=== PATIENT | male | born 1965 | race Caucasian/White ===

== ENCOUNTER 2020-05-02 14:55 | Inpatient (IN) | payer OTHER ==
[~2020-05-02] VITALS: Ht 188 cm; Wt 113.4 kg
[2020-05-02 14:57] VITALS: BP 151/94
--- NOTE | 2020-05-02 14:58 | NUR ---
Thuy fischer in ED - 05/02/20 at 1509 by MEDDANIELLE PT ENIO ALS TO ER BED 08. RN EVALUATING AT BEDSIDE.
--- NOTE | 2020-05-02 15:24 | NUR ---
Patient ambulated to bed 3 for further care. RN evaluating patient at bedside.
--- NOTE | 2020-05-02 15:46 | NUR ---
54 YO MALE C/O INFECTED WOUND RIGHT BIG TOE X 1 WEEK. MED HX: DM
[2020-05-02] MEDS ORDERED: VANCOMYCIN 1,000 MG in DEXTROSE 5% 250 ML IV ONE ×2 (15:55→21:00)
[2020-05-02] MEDS ORDERED: NACL 0.9% 1,000 ML IV ONE ×2 (15:55→16:55)
[2020-05-02] MEDS ORDERED: VANCOMYCIN 1,000 MG VIAL ONE ×2 (16:18→23:45)
[2020-05-02 16:24] LABS: BASOPHILS # (AUTO) 0.1 K/uL (0.00-0.22); BASOPHILS % (AUTO) 0.7 % (0.0-2.0); EOSINOPHILS # (AUTO) 0.1 K/uL (0-0.4); EOSINOPHILS % (AUTO) 0.8 % (0.0-4.0); HEMATOCRIT 44.4 % (36-52); HEMOGLOBIN 15.1 g/dL (12.0-18.0); LYMPHOCYTES # (AUTO) 1.9 K/uL (2.0-11.5); LYMPHOCYTES % (AUTO) 19.8 % (20.5-51.1); MEAN CORPUSCULAR HEMOGLOBIN 32 pg (27-31); MEAN CORPUSCULAR HGB CONC 34 g/dL (33-37); MEAN CORPUSCULAR VOLUME 93.3 fL (80-94); MONOCYTES # (AUTO) 0.6 K/uL (0.8-1.0); MONOCYTES % (AUTO) 6.3 % (1.7-9.3); NEUTROPHILS # (AUTO) 7.1 K/uL (1.8-7.7); NEUTROPHILS % (AUTO) 72.4 % (42.2-75.2); PLATELET COUNT (AUTO) 330 K/uL (140-450); RED BLOOD CELL COUNT(AUTO) 4.76 MIL/uL (4.20-6.10); RED CELL DISTRIBUTION WIDTH 12.5 % (11.6-13.7); WHITE BLOOD COUNT (AUTO) 9.8 K/uL (4.8-10.8)
[2020-05-02 16:41] LABS: ALBUMIN 2.6 g/dL (3.4-5.0); ANION GAP 16.7 (8-16); CARBON DIOXIDE 22.1 mmol/L (21-32); CREATININE 0.9 mg/dL (0.6-1.3); POTASSIUM 3.8 mmol/L (3.5-5.1); TOTAL BILIRUBIN 0.2 mg/dL (0.0-1.0)
[2020-05-02 16:52] LABS: PROTHROMBIN TIME 9.9 secs (10.8-13.4)
[2020-05-02] MEDS ORDERED: INSULIN REGULAR, HUMAN 100 UNIT/ML VIAL SUBQ ONE (16:55)
[2020-05-02 17:10] LABS: APPEARANCE,URINE SL CLOUDY (CLEAR); BILIRUBIN,URINE NEGATIVE (NEGATIVE); BLOOD, URINE TRACE-I (NEGATIVE); COLOR,URINE YELLOW (YELLOW); LEUKOCYTE ESTERASE ,URINE TRACE (NEGATIVE); NITRITE, URINE NEGATIVE (NEGATIVE); PH,URINE 6.5 (5.0-9.0); UGLUCOSE 3+ (NEGATIVE)
[2020-05-02 17:53] LABS: RBC,URINE 0-5 /HPF (0-5); YEAST,URINE Moderate /HPF (None Seen)
[2020-05-02] MEDS ORDERED: ONDANSETRON 4 MG/2 ML VIAL IVP PRN (18:05)
[2020-05-02] MEDS ORDERED: MORPHINE SULFATE 4 MG/ML SYR IVP PRN (18:05)
[2020-05-02] MEDS ORDERED: DEXTROSE 50% 50 ML SYR IVP PRN (18:05)
[2020-05-02] MEDS ORDERED: LORazepam 2 MG/ML VIAL IVP PRN (18:05)
[2020-05-02] MEDS ORDERED: INSULIN LANTUS 100 UNITS/ML 10 ML VIAL SUBQ ONE (18:05)
[2020-05-02] MEDS ORDERED: VANCOMYCIN PER PHARMACY MC PRN (18:05)
[2020-05-02] MEDS ORDERED: HYDROcodone/APAP 5/325 MG 1 TAB TAB PO PRN (18:05)
--- NOTE | 2020-05-02 18:31 | NUR ---
PT RESTING IN BED. EASILY AROUSEABLE TO VOICE. VSS. WILL CONTINUE TO MONITOR.
--- NOTE | 2020-05-02 19:23 | NUR ---
RECEIVED REPORT FROM RON WEBER
--- NOTE | 2020-05-02 20:30 | NUR ---
Patient will be admitted to care of DR OTT. Admited to MED/SURG. Will go to room 126A. Belongings list completed. Report to TIA GARCIA.
--- NOTE | 2020-05-02 20:35 | NUR ---
RECEIVED PT FROM ER / [facility] , AMBULATES TO BED W/ ASSIST , W/ FOUL SMELLING WOUND ON R BIG TOE . IV SITE INTACT AND PATENT . ADMISSION ASSSEMENT DONE . MRSA - SENT TO LAB . SAFETY MEASURES IN PLACE . PLAN OF CARE DISCUSSED AND VERBALIZE UNDERSTANDING . WILL CONT. TO MONITOR.
[2020-05-02 20:53] VITALS: BP 142/62
[2020-05-02] MEDS ORDERED: PIPERACILLIN/TAZOBACTAM 3.375 GM VIAL IV ONE (21:32)
[2020-05-02] MEDS: PIPERACILLIN/TAZOBACTAM 3.375 GM in DEXTROSE 5% 50 ML IV SCH (21:43)
[2020-05-02] MEDS: BLOOD GLUCOSE MONITORING 1 DEV DEV FS SCH (22:10)
[2020-05-02] MEDS: INSULIN LISPRO SLIDING SCALE 100 UNITS/ML VIAL SUBQ PRN (22:32)
--- NOTE | 2020-05-02 23:23 | NUR ---
CALL PHARMACY - VERIFYING THE FREQ. OF VANCOMYCIN - AT THE ER ER NURSE GAVE VANCOCIN 1,000 MG TIV AT 1633 THEN WHEN I RECIEVED THE PT HERE IN THE FLOOR AT 2034 ANOTHER DUE 1000 MG VANCO TIV - TOO CLOSE THE FREQ - THE PHARMACIST SAID THEY WILL RE ARRANGE THE SCHEDULE .
--- NOTE | 2020-05-02 23:32 | NUR ---
PHARMACIST CALL BACK - SHE SAID GIVE THE VANCOMYCIN 1000 MG TIV NOW .
--- NOTE | 2020-05-03 | NUR ---
PT NPO FOR SURGERY IN AM ON RT FOOT CONSENT ALREADY SINGED
--- NOTE | 2020-05-03 02:00 | NUR ---
MADE ROUNDS ,RESTING ON BED . NO COMPLAIN MADE .
[2020-05-03 04:00] VITALS: BP 136/82
--- NOTE | 2020-05-03 04:00 | NUR ---
MADE ROUNDS , NO S/SX OF ACUTE DISTRESS NOTED WILL CONT. TO MONITOR - CALL LIGHT WITHIN REACH .
[2020-05-03] MEDS ORDERED: PIPERACILLIN/TAZOBACTAM 3.375 GM VIAL IV ONE (04:51)
[2020-05-03] MEDS: PIPERACILLIN/TAZOBACTAM 3.375 GM in DEXTROSE 5% 50 ML IV SCH ×3 (05:10→18:44)
[2020-05-03] MEDS: INSULIN LISPRO SLIDING SCALE 100 UNITS/ML VIAL SUBQ PRN ×4 (05:43→22:50)
[2020-05-03] MEDS: BLOOD GLUCOSE MONITORING 1 DEV DEV FS SCH ×4 (05:46→21:00)
[2020-05-03 05:54] LABS: BASOPHILS % (AUTO) 0.4 % (0.0-2.0); EOSINOPHILS % (AUTO) 0.6 % (0.0-4.0); HEMATOCRIT 44.3 % (36-52); HEMOGLOBIN 15.2 g/dL (12.0-18.0); LYMPHOCYTES # (AUTO) 2.4 K/uL (2.0-11.5); LYMPHOCYTES % (AUTO) 28.5 % (20.5-51.1); MEAN CORPUSCULAR HEMOGLOBIN 32 pg (27-31); MEAN CORPUSCULAR HGB CONC 34 g/dL (33-37); MEAN CORPUSCULAR VOLUME 93.6 fL (80-94); MONOCYTES # (AUTO) 0.6 K/uL (0.8-1.0); MONOCYTES % (AUTO) 6.5 % (1.7-9.3); NEUTROPHILS # (AUTO) 5.4 K/uL (1.8-7.7); PLATELET COUNT (AUTO) 262 K/uL (140-450); RED BLOOD CELL COUNT(AUTO) 4.74 MIL/uL (4.20-6.10); RED CELL DISTRIBUTION WIDTH 12.6 % (11.6-13.7); WHITE BLOOD COUNT (AUTO) 8.4 K/uL (4.8-10.8)
--- NOTE | 2020-05-03 06:00 | NUR ---
DRESS THE WOUND - PROCEDURE TOLERATED WELL . NO COMPLAIN MADE .
--- NOTE | 2020-05-03 07:00 | NUR ---
REPORT RECEIVED FROM SCREW MACHINE HAND NURSE REGARDING PATIENT CONDITION AND PLAN OF CARE. PATIENT CURRENTLY RESTING IN BED, IN NO S/S RESPIRATORY DISTRESS, DOES NOT APPEAR TO BE IN ANY PAIN. ALL NEEDS MET, CALL LIGHT WITHIN REACH, WILL CONTINUE TO MONITOR.
--- NOTE | 2020-05-03 07:00 | NUR ---
ENDORSED TO AM SHIFT - PT - STABLE.
[2020-05-03 07:04] LABS: ALBUMIN 2.5 g/dL (3.4-5.0); ANION GAP 14.4 (8-16); CARBON DIOXIDE 23.3 mmol/L (21-32); CREATININE 0.7 mg/dL (0.6-1.3); POTASSIUM 3.7 mmol/L (3.5-5.1); TOTAL BILIRUBIN 0.3 mg/dL (0.0-1.0)
--- NOTE | 2020-05-03 07:16 | NUR ---
PATIENT HAS BEEN SCREENED AND CATEGORIZED MODERATE NUTRITION RISK. PATIENT WILL BE SEEN WITHIN 3-5 DAYS OF ADMISSION. 05/05/20 05/07/[address]
[2020-05-03] MEDS ORDERED: VANCOMYCIN HCL 1.25 GM in NACL 0.9% 250 ML IV SCH (08:00)
[2020-05-03] MEDS: ENOXAPARIN 40 MG/0.4 ML SYR SUBQ SCH (08:47)
[2020-05-03] MEDS: VANCOMYCIN HCL 1.25 GM in NACL 0.9% 250 ML IV SCH ×2 (08:48→17:41)
[2020-05-03] MEDS: INSULIN LANTUS 100 UNITS/ML 10 ML VIAL SUBQ SCH (08:49)
--- NOTE | 2020-05-03 08:49 | NUR ---
RECEIVED PATIENT SITTING IN BED ALERT, AWAKE, ORIENTED X 4 SPEAKING ON PHONE. PATIENT MEDICATIONS EXPLAINED AND GIVEN, VANCOMYCIN HUNG. PATIENT IS RESTING COMFORTABLY IN BED IN NO S/S RESPIRATORY DISTRESS, NO COMPLAINTS OF PAIN AT THIS TIME. DRESSING FOR RIGHT FOOT IS INTACT AND NO DRAINAGE IS NOTED. EMPTIED PATIENT URINAL OF 800 ML OF YELLOW URINE, NON ODOROUS. PATIENT ATE 100% OF BREAKFAST. ALL NEEDS MET, CALL LIGHT WITHIN REACH, WILL CONTINUE TO MONITOR.
--- NOTE | 2020-05-03 10:00 | NUR ---
PT SITTING IN BED , ALERT, IN NO S/S RESPIRATORY DISTRESS, NO COMPLAINTS OF PAIN. NO DRAINAGE NOTED ON RIGHT FOOT WOUND DRESSING. ALL NEEDS MET, CALL LIGHT WITHIN REACH, WILL CONTINUE TO MONITOR.
--- NOTE | 2020-05-03 12:00 | NUR ---
SCOURING MACHINE OPERATOR NOTE: Patient's Orientation Person Situation Place Time Information Provided By PATIENT Comments SW MET PATIENT AT BEDSIDE TO VERIFY DEMOGRAPHICS. Reed Maker, Realtionship and Phone Number PAULINE BARRETT [phone] Healthcare Power of Supervisor Stage [employer] No Does Patient Have a POLST No Identifying Problems No Social Work Triggers Is A Social Work Consult Needed No Mandate Report Filed No Explanation Of Identifying Problems PATIENT IS A 54-YEAR-OLD MALE ADMITTED FOR CELLULITIS. PATIENT HAS PMHX OF DIABETES. Admitted From Home Pre-Admission Level Of Functioning Status Independent/Ambulatory Prior Resources/Services Used In Last 12 Months No Prior Resources Used Prior DME No Prior DME Used Living Situation Lives Alone Mobile Home Patient Had Caregiver No Home Support No Caregiver Issues Financial Issues No Known Financial Issue Referral To The Financial Counselor Needed No Factors/Needs No D/C Needs Identified Pt/Rep Participated In Discharge Plan Yes Patient/Family Agress With Discharge Plan Yes Discharge Plan Comments TENTATIVE DISCHARGE PLAN IS FOR PATIENT TO RETURN HOME. DC Plan Status Initiated
--- NOTE | 2020-05-03 12:25 | NUR ---
BLOOD GLUCOSE CHECKED TO BE 295, WILL GIVE 6 UNITS OF HUMALOG INSULIN.
--- NOTE | 2020-05-03 12:40 | NUR ---
PT SITTING IN BED , ALERT, IN NO S/S RESPIRATORY DISTRESS, NO COMPLAINTS OF PAIN. NO DRAINAGE NOTED ON RIGHT FOOT WOUND DRESSING. JESSE REYNOLDS, NO ADVERSE REACTIONS NOTED. ALL NEEDS MET, CALL LIGHT WITHIN REACH, WILL CONTINUE TO MONITOR.
[2020-05-03 14:00] VITALS: BP 125/76
--- NOTE | 2020-05-03 14:00 | NUR ---
PT SITTING IN BED, ALERT, IN NO S/S RESPIRATORY DISTRESS, NO COMPLAINTS OF PAIN. NO DRAINAGE NOTED ON RIGHT FOOT WOUND DRESSING. ALL NEEDS MET, CALL LIGHT WITHIN REACH, WILL CONTINUE TO MONITOR.
--- NOTE | 2020-05-03 17:35 | NUR ---
DR WILD TOPOGRAPHICAL DRAFTER IN TO EXAMINE RESIDENT FOOT AND SPEAK WITH PATIENT REGARDING PLAN OF CARE.
--- NOTE | 2020-05-03 17:42 | NUR ---
BLOOD GLUCOSE CHECKED TO BE 246 WILL GIVE 4 UNITS OF HUMALOG INSULIN.
--- NOTE | 2020-05-03 19:20 | NUR ---
REPORT GIVEN TO TEST ENGINEERING MANAGER NURSE BY THE BEDSIDE REGARDING PATIENT CONDITION AND PLAN OF CARE OF SURGERY TOMORROW. PATIENT IS RESTING IN BED, STABILIZED, IN NO S/S RESPIRATORY DISTRESS, NO C/O OF PAIN.
--- NOTE | 2020-05-03 19:30 | NUR ---
RECEIVED PT FROM DAY SHIFT NURSE PT IS AAOX4 AMBULATORY ,RT FOOT DIABETIC ULCER DRESSING DRY AND INTACT, IV ON LEFT HAND INFUSING WELL NOT DISTRESS NOTED AT HIS TIME
[2020-05-03 20:00] VITALS: BP 143/80
--- NOTE | 2020-05-03 21:30 | NUR ---
BLOOD SUGAR TEST 316 COVERAGE WITH 8 UNITS SUBQ HUMALOG FOLLOW PROTOCOL
[2020-05-04] VITALS: BP 143/80
[2020-05-04] MEDS: PIPERACILLIN/TAZOBACTAM 3.375 GM in DEXTROSE 5% 50 ML IV SCH ×2 (00:43→06:47)
[2020-05-04] MEDS: VANCOMYCIN HCL 1.25 GM in NACL 0.9% 250 ML IV SCH (00:46)
--- NOTE | 2020-05-04 04:00 | NUR ---
PT HAS BEEN MONITORING CLOSED SLEEPING WELL NOT DISTRESS NOTED
[2020-05-04 06:36] LABS: ALBUMIN 2.4 g/dL (3.4-5.0); ANION GAP 12.3 (8-16); CARBON DIOXIDE 25.4 mmol/L (21-32); CREATININE 0.9 mg/dL (0.6-1.3); POTASSIUM 3.7 mmol/L (3.5-5.1); TOTAL BILIRUBIN 0.4 mg/dL (0.0-1.0)
[2020-05-04] MEDS ORDERED: ONDANSETRON 4 MG/2 ML VIAL IVP PRN (07:00)
[2020-05-04] MEDS: BLOOD GLUCOSE MONITORING 1 DEV DEV FS SCH ×2 (07:00→12:20)
[2020-05-04] MEDS: BLOOD GLUCOSE MONITORING 1 DEV DEV FS ONE ×2 (07:00→08:49)
[2020-05-04] MEDS ORDERED: NACL 0.9% 1,000 ML IV SCH (07:00)
--- NOTE | 2020-05-04 07:00 | NUR ---
BLOOD SUGAR TEST 259 PT NPO GOING TO SURGERY , KPT WILL BE ENDORSED TO DAY SHIFT NURSE FOR CONTINUE OF CARE
[2020-05-04 07:11] LABS: BASOPHILS % (AUTO) 0.5 % (0.0-2.0); EOSINOPHILS # (AUTO) 0.1 K/uL (0-0.4); EOSINOPHILS % (AUTO) 0.8 % (0.0-4.0); HEMATOCRIT 47.1 % (36-52); LYMPHOCYTES # (AUTO) 2.2 K/uL (2.0-11.5); LYMPHOCYTES % (AUTO) 27.2 % (20.5-51.1); MEAN CORPUSCULAR HEMOGLOBIN 32 pg (27-31); MEAN CORPUSCULAR HGB CONC 34 g/dL (33-37); MEAN CORPUSCULAR VOLUME 93.9 fL (80-94); MONOCYTES # (AUTO) 0.7 K/uL (0.8-1.0); MONOCYTES % (AUTO) 8.2 % (1.7-9.3); NEUTROPHILS % (AUTO) 63.3 % (42.2-75.2); PLATELET COUNT (AUTO) 289 K/uL (140-450); RED BLOOD CELL COUNT(AUTO) 5.01 MIL/uL (4.20-6.10); RED CELL DISTRIBUTION WIDTH 12.5 % (11.6-13.7); WHITE BLOOD COUNT (AUTO) 7.9 K/uL (4.8-10.8)
--- NOTE | 2020-05-04 07:30 | NUR ---
RECEIVED PT AAOX4. PT IS GOING TO SURGERY BY DR. HORTON. CONSENT SIGNED. SURGICAL CHECKLIST DONE.
[2020-05-04] MEDS ORDERED: BUPIVACAINE-MPF 0.5% 30 ML VIAL INJ ONE (07:38)
[2020-05-04] MEDS ORDERED: SEVOFLURANE 250 ML BTL INH ONE (07:42)
[2020-05-04] MEDS ORDERED: fentaNYL citrate 0.05 MG/ML VIAL ONE (07:42)
[2020-05-04] MEDS ORDERED: DEXAMETHASONE 4 MG/ML VIAL ONE (07:42)
[2020-05-04] MEDS ORDERED: ONDANSETRON 4 MG/2 ML VIAL ONE (07:42)
[2020-05-04] MEDS ORDERED: ePHEDrine 50 MG/ML VIAL ONE (07:42)
[2020-05-04] MEDS ORDERED: PROPOFOL 200 MG/20 ML VIAL IV ONE (07:42)
[2020-05-04] MEDS: INSULIN LANTUS 100 UNITS/ML 10 ML VIAL SUBQ SCH (09:00)
[2020-05-04] MEDS: ENOXAPARIN 40 MG/0.4 ML SYR SUBQ SCH (09:00)
[2020-05-04] MEDS ORDERED: HYDROmorphone PFS 2 MG/ML SYR ONE (09:00)
--- NOTE | 2020-05-04 09:00 | NUR ---
SCHEDULED MEDS NOT GIVEN, PT NPO AND IN SURGERY.
[2020-05-04] MEDS: HYDROmorphone 1 MG/ML AMP IVP PRN ×4 (09:05→09:35)
[2020-05-04 09:40] VITALS: BP 109/76
--- NOTE | 2020-05-04 09:40 | NUR ---
PT CAME BACK FROM SURGERY S/P AMPUTATION OF RT GREAT TOE AND PARTIAL AMPUTATION OF RT 3RD TOE. PT AAOX4. NO SOB NOTED. NO C/O PAIN AT THIS TIME. POST OP V/S STABLE. IV TO LAC PATENT AND INTACT. CHEST CLEAR. ABDOMEN SOFT, BOWEL SOUNDS PRESENT. NO EDEMA NOTED. RT FOOT DRESSING DRY AND INTACT. INSTRUCTED PT TO CALL FOR ASSISTANCE, CALL LIGHT WITHIN REACH, VERBALIZED UNDERSTANDING.
[2020-05-04] MEDS ORDERED: VANCOMYCIN HCL 1.25 GM in NACL 0.9% 250 ML IV SCH ×3 (12:00→16:00)
[2020-05-04] MEDS ORDERED: AMOX-999 PO ×2 (12:02→13:21)
[2020-05-04] MEDS: INSULIN LISPRO SLIDING SCALE 100 UNITS/ML VIAL SUBQ PRN ×2 (12:29→12:41)
--- NOTE | 2020-05-04 12:36 | NUR ---
SCHEDULED ZOSYN 1VPB GIVEN AT 1237HRS, MEDICATION SCANNED AND ADMINISTERED, UNABLE TO FILE MED. PHARMACIST MADE AWARE.
--- NOTE | 2020-05-04 13:00 | NUR ---
PER DR WILD, DR. HORTON'S CLINIC ([facility]) WILL CONTACT PT ON WEDNESDAY TO WHAT TIME HIS FOLLOW UP APPOINTMENT ON 05/08/2020. CRUTCHES AND POST-OP SHOE PROVIDED. INSTRUCTED PT TO DO HEEL BEARING ONLY TO RIGHT FOOT, NON-WEIGHT BEARING TO RIGHT TOES, KEEP RIGHT FOOT DRESSING DRY AND INTACT AND REINFORCE DRESSING WITH ELASTIC BANDAGE WHEN THERE'S A STRIKE THROUGH, PT VERBALIZED UNDERSTANDING. ELASTIC BANDAGES PROVIDED WELL.
[2020-05-04] MEDS ORDERED: HYDR-5122 PO (13:16)
[2020-05-04] MEDS ORDERED: METF1000 PO (13:17)
[2020-05-04] MEDS ORDERED: AUG ×2 (13:17→13:18)
--- NOTE | 2020-05-04 13:45 | NUR ---
DISCHARGE INSTRUCTIONS AND PRESCRIPTIONS GIVEN TO PT WHICH VERBALIZED FULL UNDERSTANDING OF THE INSTRUCTIONS GIVEN AND THE NEED TO FOLLOW JO-ANN HORTON AND PCP WITHIN 7 DAYS. ARM BANDS AND IV REMOVED, CANNULA TIP INTACT.
--- NOTE | 2020-05-04 13:55 | NUR ---
PT WHEELED TO THE FRONT LOBBY IN STABLE CONDITION. NO COMPLAINTS MADE. PT IS D/C HOME WITH BROTHER IN LAW.
--- NOTE | 2020-05-07 18:18 | NUR ---
LATE ENTRY- NORMAL SALINE 0.9% IV FLUIDS DISCONTINUED AT 20:30 1000ML GIVEN
== END 2020-05-04 13:55 | disposition home or self-care (01) | DRG 314 ==
LOC: MED 14:55 → MMU 18:11
PROVIDERS: ADMIT Hospitalist; ATTEND Hospitalist
PROC: 0Y6T0Z1 Detachment at Right 3rd Toe, High, Open Approach (ICD-10-PCS; 2020-05-04)
PROC: 0Y6P0Z0 Detachment at Right 1st Toe, Complete, Open Approach (ICD-10-PCS; principal; 2020-05-04 07:30)
DX: E11.69 Type 2 diabetes mellitus with other specified complication (principal); E11.51 Type 2 diabetes mellitus with diabetic peripheral angiopathy without gangrene; E11.42 Type 2 diabetes mellitus with diabetic polyneuropathy; E11.621 Type 2 diabetes mellitus with foot ulcer; E11.65 Type 2 diabetes mellitus with hyperglycemia; F17.210 Nicotine dependence, cigarettes, uncomplicated; L97.519 Non-pressure chronic ulcer of other part of right foot with unspecified severity; L03.115 Cellulitis of right lower limb; Z60.2 Problems related to living alone; R60.0 Localized edema; M86.171 Other acute osteomyelitis, right ankle and foot; T38.3X6A Underdosing of insulin and oral hypoglycemic [antidiabetic] drugs, initial encounter; Z89.421 Acquired absence of other right toe(s); Y92.89 Other specified places as the place of occurrence of the external cause; Z91.19 Patient's noncompliance with other medical treatment and regimen
CPT/HCPCS: 36415; 71045; 73630; 80053; 80202; 81001; 82948; 83036; 83605; 85025; 85610; 85651; 85730; 86140; 87040; 87081; 87086; 93005; 99285; J1100; J1170; J1650; J1815; J2405; J2543; J2704; J3010; J3370; J3490; J7030; J7060; Q0092